=== PATIENT | female | born 1980 | race Caucasian/White ===

== ENCOUNTER → 2016-05-23 | Outpatient (CLI) | payer OTHER ==
[~2016-05-23] MED LIST: ALPR-411 PO; MULT-506 PO; ONDA4TAB46 PO
== END | disposition home or self-care (01) ==
LOC: C.LAB1850 16:49
PROVIDERS: ATTEND Obstetrics & Gynecology
DX: Z15.01 Genetic susceptibility to malignant neoplasm of breast (principal)

== ENCOUNTER → 2016-08-14 | Outpatient (CLI) | payer OTHER | END | disposition home or self-care (01) | LOC: C.PAPS 11:26 | PROVIDERS: ATTEND Obstetrics & Gynecology | DX: Z01.419 Encounter for gynecological examination (general) (routine) without abnormal findings (principal) ==

== ENCOUNTER → 2016-10-23 | Outpatient (CLI) | payer OTHER ==
[~2016-10-23] MED LIST changes: -ONDA4TAB46 PO
--- NOTE | 2016-10-23 13:06 | MAMMOGRAPHY REPORT ---
ULTRASOUND OF BOTH BREASTS: 10/23/2016 CLINICAL HISTORY: 36-year-old BRCA positive female who underwent bilateral prophylactic mastectomies and saline implant reconstruction in [facility] and [place] presents with asymmetry of her implants. Sh e feels as though the right implant "has dropped" and there is a tightness or pressure along the supe rior aspect. COMPARISON: Prior mammograms, ultrasounds and breast MRI dating from 199911/07/2013. FINDINGS: On visual inspection, the right reconstructed breast lies inferior with regard to the left and there is inferior breast fullness. There is asymmetry of the nipple/areolas, with the left down flores pointing. There is also less inferior tissue of the left reconstructed breast compared to the r ight. Targeted ultrasound was performed throughout the right breast to assess for any suspicious mass or fl uid collection. The implant is intact, without evidence of rupture. There is no evidence of a silvia- implant fluid collection or suspicious mass. IMPRESSION: ACR BI-RADS CATEGORY 1: NEGATIVE There is no sonographic evidence of malignancy, silvia-implant fluid collection or suspicious mass to e xplain the asymmetry of the patient's breast implants. Consultation with a plastic surgeon is recomm ended. (The patient reports she already has an upcoming appointment with Dr. Michael.) Deja Morales M.D. ay/:10/23/2016 11:15:10 Nurse Obgyn: Dr. Deja Morales, [facility] letter sent: Normal 1/2 BI-RADS Code: ACR BI-RADS Category 1: Negative
== END | disposition home or self-care (01) ==
LOC: C.MAMM 10:34
PROVIDERS: ATTEND Obstetrics & Gynecology
DX: N64.4 Mastodynia (principal); Z98.82 Breast implant status

== ENCOUNTER → 2017-04-02 | Outpatient (CLI) | payer OTHER | END | disposition home or self-care (01) | LOC: C.LAB1850 09:56 | PROVIDERS: ATTEND Obstetrics & Gynecology | DX: Z15.01 Genetic susceptibility to malignant neoplasm of breast (principal) ==

== ENCOUNTER → 2017-06-13 | Outpatient (CLI) | payer OTHER | END | disposition home or self-care (01) | LOC: C.LABSPEC 09:33 | PROVIDERS: ATTEND Nurse Practitioner | DX: J02.9 Acute pharyngitis, unspecified (principal) ==

== ENCOUNTER → 2017-08-21 | Outpatient (CLI) | payer OTHER | END | disposition home or self-care (01) | LOC: C.LAB1850 17:17 | PROVIDERS: ATTEND Obstetrics & Gynecology | DX: Z15.01 Genetic susceptibility to malignant neoplasm of breast (principal) ==

== ENCOUNTER → 2017-08-29 | Outpatient (CLI) | payer OTHER ==
[2017-08-29 15:38] LABS: BASO % 0.4 %; BASO ABS # 0.02 K/uL (0-0.2); EOS % 2.8 %; EOS ABS # 0.14 K/uL (0-0.5); HEMATOCRIT 34.4 % (37-47); HEMOGLOBIN 11.1 g/dL (12.0-16.0); IG# 0.01 K/uL (0.00-0.02); LYMPH % 28.9 %; LYMPH ABS # 1.45 K/uL (1.2-3.4); MEAN CELL VOLUME 83.7 fL (80-100); MEAN CORPUSCULAR HGB CONC 32.3 g/dl (32-36); MONO % 8.2 %; MONO ABS # 0.41 K/uL (0.11-0.59); NEUT % 59.5 %; NEUT ABS # 2.99 K/uL (1.4-6.5); PLATELET COUNT 281 K/uL (130-400); RED CELL DISTRIBUTION WIDTH CV 13.3 % (11.5-14.5); RED CELL DISTRIBUTION WIDTH SD 40.1 fL (36.4-46.3); WHITE BLOOD COUNT 5.02 K/uL (4.8-10.8)
[2017-08-29 15:46] LABS: PTT PATIENT 25.9 SECONDS (21.0-31.0)
[2017-08-29 16:03] LABS: BLOOD UREA NITROGEN 14 mg/dl (7-18); CALCIUM 8.9 mg/dl (8.5-10.1); CARBON DIOXIDE 27 mmol/L (21-32); CREATININE 0.68 mg/dl (0.60-1.20); GLUCOSE 82 mg/dl (70-99); POTASSIUM 3.8 mmol/L (3.5-5.1); SODIUM 137 mmol/L (136-145)
== END | disposition home or self-care (01) ==
LOC: C.LAB1850 14:08
PROVIDERS: ATTEND Physician Assistant
DX: Z01.818 Encounter for other preprocedural examination (principal); Z42.1 Encounter for breast reconstruction following mastectomy

== ENCOUNTER → 2017-11-13 | Outpatient (CLI) | payer OTHER | END | disposition home or self-care (01) | LOC: C.LAB1850 07:46 | PROVIDERS: ATTEND Obstetrics & Gynecology | DX: R63.5 Abnormal weight gain (principal) ==

== ENCOUNTER 2018-07-18 09:08 | Observation (INO) ==
--- NOTE | 2018-07-03 11:13 | Anesthesiology Consultation ---
Date of Service July 03, 2018 Assessment & Plan (1) Encounter for pre-operative examination: Chart Review Chart Review: Acceptable Risk for Surgery and Patient seen in Pre Admission Testing Consults Requested none Teaching & Discussion Pre-Anesthesia Teaching/Discussion Notes: Instructed NPO after midnight before surgery, except medications with 15 cc of water. Medication instructions provided according to the PAT guidelines. History Surgery Operation Date: 07/18/18 11:05 Proposed Procedures p Robotic Total Laparoscopic Hysterectomy - Leonela Blandon MD, FACOG Height/Weight Height: 5 ft 1 in Weight: 60.3 kg Allergies Allergy/AdvReac Type Severity Reaction Status Date / Time Penicillins Allergy Unknown UNKNOWN Verified 06/26/18 08:25 -FROM CHILDHOOD ALLERGY, RASH? Medications Home Medications Medication Instructions Recorded Confirmed Last Taken alprazolam 0.25 mg PO Q8H PRN 03/27/18 06/26/18 Unknown cholecalciferol (vitamin D3) 2,000 units PO DAILY 03/27/18 06/26/18 Unknown [Vitamin D3] levothyroxine 75 mcg PO QAM 03/27/18 06/26/18 06/26/18 multivitamin 1 tab PO DAILY 03/27/18 06/26/18 Unknown venlafaxine 75 mg PO QAM 03/27/18 06/26/18 06/26/18 Iron Infusion 1 dose UD 06/26/18 06/26/18 Unknown Vitamin D Injection 1 dose UD 06/26/18 06/26/18 Unknown Past Medical History Medical History Anxiety Gene mutation "BRAC 1 GENE" Heavy menstrual period REASON FOR UPCOMING SURGERY Hypothyroidism Low vitamin D level Past Surgical History Surgical History History of arthroscopy of left knee History of back surgery CYST REMOVAL History of bilateral mastectomy History of breast augmentation IMPLANTS FOLLOWING MASTECTOMY History of tubal ligation Bilateral distal Salpingectomy 09/01/15 - Snyder #2, ETT #7 HiLo with Grade 1 View Past Anesthesia History No Hx of Anesthesia Complications and No Family Hx of Anesthesia Complications History of PONV Yes Motion Sickness Screening History of Motion Sickness: No Social History Smoking Status: Never smoker Do You Dip or Chew Tobacco: No Hx Alcohol Use: Yes Alcohol type: wine alcohol intake frequency: holidays/special occasions only Hx Substance Use: No substance use type: does not use Exercise / Class Metabolic Activity 1 > 8 Run/Swim/Ski/Tennis (Runs 3-5 per day (5 days per week). Able to climb FOS. Denies CP or SOB. ) Review of Systems Patient denies chest pain, shortness of breath, dyspnea on exertion, joint pain, reflux, cough, wheezing, palpitations. Physical Exam Vital Signs BP: 115/80 P: 66 R: 14 T: 97.9 SPO2: 99% on RA ENMT Thyromental Distance: > or= 3.5 Finger Breadths (4) Mallampati Class: I Neck normal visual inspection and trachea midline; neck extension not limited Respiratory normal respiratory effort Auscultation: lungs clear to auscultation bilaterally Cardiovascular Rate/Rhythm: regular rate and regular rhythm Heart Sounds: no murmur Neurologic moves all extremities Psychiatric Orientation: alert and oriented x 3 Testing Laboratory Results 07/03/18 11:30 Blood Type A Negative 07/03/18 11:30 Antibody Screen NEGATIVE 07/03/18 11:30
--- NOTE | 2018-07-03 11:15 | PAT Medication Instructions ---
Medication Instructions Date of Service July 03, 2018 Home Medications alprazolam 0.25 mg PO Q8H PRN cholecalciferol (vitamin D3) 2,000 units PO DAILY levothyroxine 75 mcg PO QAM multivitamin 1 tab PO DAILY venlafaxine 75 mg PO QAM Iron Infusion 1 dose Weekly Vitamin B12 Injection 1 dose Weekly Continue as directed Iron Infusion 1 dose Weekly Vitamin B12 Injection 1 dose Weekly DO NOT take the morning of surgery multivitamin 1 tab PO DAILY cholecalciferol (vitamin D3) 2,000 units PO DAILY Take morning of surgery With a small sip of water, OTHERWISE NOTHING TO EAT OR DRINK AFTER MIDNIGHT: venlafaxine 75 mg PO QAM levothyroxine 75 mcg PO QAM alprazolam 0.25 mg PO Q8H PRN Take evening before surgery alprazolam 0.25 mg PO Q8H PRN Other Notes If you have any questions please call us at [phone] or [phone] or [phone] or [phone]
[2018-07-03 12:17] LABS: Basophils # (auto) 0.01 K/uL (0-0.2); Basophils % (auto) 0.2 %; Eosinophils # (auto) 0.11 K/uL (0-0.5); Hematocrit (blood only) 38.3 % (37-47); Hemoglobin 12.9 g/dL (12.0-16.0); Lymphocytes # (auto) 1.67 K/uL (1.2-3.4); Lymphocytes % (auto) 31.1 %; Mean Corpuscular Hgb Conc 33.7 g/dL (32-36); Mean Corpuscular Volume 88.7 fL (80-100); Mean Platelet Volume 9.7 fL (7.4-10.4); Monocytes # (auto) 0.33 K/uL (0.11-0.59); Monocytes % (auto) 6.1 %; Neutrophils # (auto) 3.25 K/uL (1.4-6.5); Neutrophils % (auto) 60.6 %; Platelet Count 238 K/uL (130-400); RDW Coefficient of Variation 14.1 % (11.5-14.5); RDW Standard Deviation 46.1 fL (36.4-46.3); Red Blood Count 4.32 M/uL (4.2-5.4); White Blood Count 5.37 K/uL (4.8-10.8)
[~2018-07-18 09:08] MED LIST changes: -ALPR-411 PO; +CEFAZOLIN 2000MG 2,000 MG/15 ML SYR IV SCH; +LACTATED RINGER'S 1,000 ML IV SCH; +LR 15ML/HR IV SCH; -MULT-506 PO; +PHENAZOPYRIDINE HCL 200 MG TAB PO SCH; +SCOPOLAMINE 1.5 MG TDSY TD SCH
--- NOTE | 2018-07-18 10:06 | History & Physical Bridge Note ---
Date of Service July 18, 2018 History & Physical Bridge Note I have examined the patient, reviewed the History & Physical and in the interval since the performance of the History & Physical I have noted the following changes of clinical significance: no changes noted
[2018-07-18] MEDS ORDERED: MEPERIDINE HCL 25 MG/ML CARP IV PRN (10:13)
[2018-07-18] MEDS ORDERED: ePHEDrine sulfate 50 MG/ML AMP IV PRN (10:13)
[2018-07-18] MEDS ORDERED: LABETALOL HCL IV 5 MG/ML 20ML IV PRN (10:13)
[2018-07-18] MEDS ORDERED: HYDROmorphone INJ 1 MG/ML SYRINGE IV PRN (10:13)
[2018-07-18] MEDS ORDERED: ONDANSETRON INJ 2 MG/ML 2 ML VIAL IV PRN ×2 (10:13→12:32)
[2018-07-18] MEDS ORDERED: PHENYLEPHRINE 100MCG/ML 5ML SYR IV PRN (10:13)
[2018-07-18] MEDS ORDERED: ATROPINE SULFATE 0.1 MG/ML 10ML SYR IV PRN (10:13)
[2018-07-18] MEDS ORDERED: BUPIVACAINE 0.5 % 5 MG/1 ML MPF 30ML VIAL ONE (10:15)
[2018-07-18] MEDS ORDERED: DEXAMETHASONE SOD INJ 4 MG/ML VIAL ONE ×2 (10:19→10:44)
[2018-07-18] MEDS ORDERED: PROPOFOL IV EMULSION 10 MG/ML 20 ML VIAL IV ONE (10:19)
[2018-07-18] MEDS ORDERED: NEOSTIGMINE METHYLSULFATE 5 MG/5 ML SYR ONE (10:19)
[2018-07-18] MEDS ORDERED: ePHEDrine sulfate 50 MG/ML AMP ONE (10:19)
[2018-07-18] MEDS ORDERED: ONDANSETRON INJ 2 MG/ML 2 ML VIAL ONE ×2 (10:19→10:44)
[2018-07-18] MEDS ORDERED: PHENYLEPHRINE HCL 10 MG/ML VIAL ONE (10:19)
[2018-07-18] MEDS ORDERED: SUCCINYLCHOLINE CHLORIDE 20 MG/ML 10 ML VIAL ONE (10:19)
[2018-07-18] MEDS ORDERED: LIDOCAINE HCL 2% 2 ML VIAL/AMP(20MG/ML) INFIL ONE (10:19)
[2018-07-18] MEDS ORDERED: GLYCOPYRROLATE 0.2 MG/ML VIAL ONE ×2 (10:19→12:10)
[2018-07-18] MEDS ORDERED: MIDAZOLAM HCL 1 MG/ML 2ML VIAL ONE (10:20)
[2018-07-18] MEDS ORDERED: fentaNYL citrate 100 MCG/2 ML VIAL ONE (10:20)
[2018-07-18] MEDS ORDERED: HYDROmorphone INJ 2 MG/ML SYR/VIAL ONE (11:07)
[2018-07-18] MEDS ORDERED: ACETAMINOPHEN 1000 MG/100 ML IV IV ONE (11:52)
[2018-07-18] MEDS ORDERED: KETOROLAC 30 MG/ML VIAL ONE (12:10)
--- NOTE | 2018-07-18 12:15 | Post Operative Brief Note ---
Immediate Post Op Note v1 Date of Surgery July 18, 2018 Pre & Post Diagnosis Operation Date: 07/18/18 10:25 Pre-Op Diagnosis: Menorrhagia, BRCA 1 mutation, Anemia Post-Op Diagnosis: Menorrhagia, BRCA 1 mutation, Anemia Procedure Operation Date: 07/18/18 10:25 Actual Procedures p Robotic Assisted Total Laparoscopic Hysterectomy, Bilateral oophorectomy, Cystoscopy - Leonela Blandon MD, FACOG Surgeon Leonela Blandon MD, FACOG Junior Manufacturing Engineer Samantha for cystoscopy Estimated Blood Loss 5 Findings See Below normal uterus and ovaries bilaterally. normal liver edge. cytoscopy findings with normal bladder filling and normal ureteral jets Fluids 1600 Specimens uterus, cervix, bilateral ovaries Drains Lopez Catheter (18 fr ) Complications none Disposition Accompanied Patient To Recovery: No Disposition: Recovery Room
[2018-07-18] MEDS ORDERED: OXYCODONE/ACETAMINOPHEN 5mg/325mg TAB PO PRN ×2 (12:32)
[2018-07-18] MEDS ORDERED: KETOROLAC 30 MG/ML VIAL IV PRN (12:32)
[2018-07-18] MEDS ORDERED: ACETAMINOPHEN 325 MG TAB PO PRN (12:32)
[2018-07-18] MEDS ORDERED: DiphenhydrAMINE HCL 50 MG/ML VIAL ONE (12:45)
[2018-07-18] MEDS ORDERED: ROCURONIUM BROMIDE 10 MG/ML 5 ML VIAL ONE (12:47)
[2018-07-18] MEDS: fentaNYL citrate 100 MCG/2 ML VIAL IV PRN ×2 (12:50→12:55)
[2018-07-18] MEDS ORDERED: DiphenhydrAMINE HCL 50 MG/ML VIAL IV STA (13:23)
--- NOTE | 2018-07-18 13:23 | Anesthesiology Progress Note ---
Date of Service July 18, 2018 Anesthesia Post Procedure Vital Signs Vital Signs: Temp Pulse Pulse Resp BP Pulse Ox 07/18/18 13:10 57 L 13 110/65 93 07/18/18 13:00 65 16 106/62 92 07/18/18 12:50 55 L 15 112/62 100 07/18/18 12:40 60 16 114/72 100 07/18/18 12:33 36.5 C 61 14 113/73 100 07/18/18 09:28 36.7 C 59 L 18 130/80 98 Pain Intensity Abdomen: Pain Intensity: 2 Notes Mental Status: alert / awake / arousable Patient Amnestic to Procedure: Yes Nausea / Vomiting: adequately controlled Pain: adequately controlled Airway Patency, RR, SpO2: stable & adequate BP & HR: stable & adequate Hydration State: stable & adequate Anesthetic Complications: no major complications apparent and Pt Satisfied with anesthetic care Notes: The patient did well during the procedure. After the procedure was over and the patient was uncovered, a red rash was noted under the patient's breasts and possibly on her arms. She was given diphenhydramine 25 mg IV which appeared to treat the rash. She was extubated without incident. In PACU, she is awake and stable. Her lungs are clear and she feels well except for some mild itching. The rash appears to have disappeared. She will be given another dose of diphenhydramine but is otherwise stable and okay to go to the floor.
--- NOTE | 2018-07-18 14:17 | Operative Report ---
DATE OF OPERATION: 07/18/2018 PREOPERATIVE DIAGNOSES: 1. BRCA1 positive. 2. Menorrhagia. 3. Iron-deficiency anemia. POSTOPERATIVE DIAGNOSES: 1. BRCA1 positive. 2. Menorrhagia. 3. Iron-deficiency anemia. PROCEDURES: 1. Total laparoscopic hysterectomy. 2. Bilateral oophorectomy. 3. Cystoscopy. 4. Robotic assistance. SURGEON: Leonela Blandon MD GEOTECHNICAL ENGINEER: Jose Singh MD INTRAVENOUS FLUIDS: 1600 mL. ESTIMATED BLOOD LOSS: 5 mL. ANESTHESIA: General. INDICATIONS: A 38-year-old 3, para 3 with a history of heavy menses, anemia requiring IV iron and a BRCA1 mutation for treatment planning. The patient has previously had bilateral salpingectomies as she has been done childbearing. She had been counseled by her auto servicer to consider hysterectomy due to her heavy menses, and in addition, we discussed risk reducing oophorectomy due to her age and she was agreeable. FINDINGS: Mobile uterus, normal ovaries bilaterally, normal liver edge, normal appendix seen. Cystoscopy findings with normal bladder filling and normal ureteral jets bilaterally. DESCRIPTION OF PROCEDURE: The patient was taken to the operating room and identified. After adequate general anesthesia was obtained, she was placed in dorsal lithotomy position and prepped and draped in the usual sterile fashion. Attention was turned to the patient's vagina where a weighted speculum and anterior retractor placed to visualize the cervix which was grasped in its anterior lip with an Allis clamp. A single interrupted suture of 0 Vicryl was placed at 3 o'clock position and the cervix was sequentially dilated using Hegar dilators and sounded to 9 cm. The VCare uterine manipulator device was gently placed through the cervical os into the uterine cavity and a balloon was inflated. The cup was tied down to the suture material and stabilizing cup was placed. The vaginal instruments were removed and a Lopez catheter was placed under sterile conditions. Attention was then turned to the patient's abdomen where a supraumbilical skin incision made with a scalpel. The Veress needle was placed intraperitoneally with an opening pressure of 4 mmHg. A CO2 pneumoperitoneum was created. The 12 mm optical trocar was directly placed into the peritoneal cavity. The patient was placed in steep Trendelenburg. The da Karla trocar sites were created left and right of the midline by first creating skin incisions and then placing under direct visualization da Karla trocars. The bowel was teased away from the planned operative field. The ureters were seen coursing well away from the planned operative sites. The laparoscope and camera removed. The da Karla robot was brought to the patient's bedside. The appropriate instrument arms were connected to the appropriate trocars. The camera was introduced. Under direct visualization, a monopolar titus was brought through instrument arm #1 and a fenestrated bipolar through instrument arm #2. The surgeon then went to the console. With manipulation, the right infundibulopelvic ligament was identified. It was coagulated with multiple grasps and then transected using the monopolar titus. The round ligament was also elevated, coagulated, and transected and the remaining broad ligament attachments were taken down in between these 2 sites. The bladder flap was begun from the right side towards the midline, pushing the bladder well away from the planned operative sites. The uterine artery pedicle was coagulated. Attention was turned to the left infundibulopelvic ligament, round ligament, broad ligament complex. It was also coagulated and transected in a similar fashion, and anterior and posterior leaves of the broad ligament were opened up into create a bladder flap anteriorly. The uterine artery pedicle was skeletonized and then coagulated and transected. The cardinal ligaments were also coagulated and transected. The bladder was pushed well away from the planned operative sites at the colpotomy anteriorly on the left. Attention was returned to the right side where the uterine artery pedicle was recoagulated and transected and the cardinal ligament attachments were coagulated and transected. The colpotomy site was more thoroughly cleared away from the right side towards the midline. The uterus was lifted and the colpotomy was begun at the posterior vaginal cuff. It was carried around circumferentially and the specimen was completely transected and then removed vaginally. A sponge was placed in the vagina to allow for maintenance of the pneumoperitoneum. The 2-0 V-Loc 90 suture was introduced vaginally and the #1 instrument arm was replaced with a large needle otr van cdl truck driver. The cuff was then closed in a routine fashion using the suture material and back stitches were placed. The sponge was removed from the vagina. Pneumoperitoneum was maintained. The #1 instrument was removed and the instrument arm was undocked to allow for the needle otr van cdl truck driver to come in and the needle was removed from the abdomen. Suction card boxer was then brought in and the pelvis was irrigated and there were no active bleeding sites noted. The CO2 pneumoperitoneum was let down and there were still no active bleeding sites noted. All the operative sites were hemostatic. The CO2 gas was allowed to escape from the patient's abdomen after the camera was removed. A cystoscopy took place with the findings as noted above. A new Lopez catheter was placed under sterile conditions. The robot was then completely undocked from the patient and removed from the bedside and the trocars were removed after the CO2 gas was allowed to escape from the patient's abdomen. The patient was placed in flat positioning and the fascia was reapproximated at the supraumbilical site with an interrupted suture of 0 Vicryl. The incisions were injected with Marcaine, stitched in a subcuticular fashion with 4-0 Vicryl and dressed with Dermabond. The patient was returned to the supine position and awoken from anesthesia. She was transferred to the recovery room in stable condition. All sponge, lap, needle counts were correct x2. I attest to the content of the Intraoperative Record and any orders documented therein. Any exceptions are noted below. BRIAN
[2018-07-18] MEDS: IBUPROFEN 600 MG TAB PO PRN ×2 (14:19→19:32)
[2018-07-18] MEDS ORDERED: CHECK SCOPOLAMINE PATCH PLACEMENT SCH (16:00)
--- NOTE | 2018-07-19 17:56 | Discharge Summary ---
Date of Service July 18, 2018 Admission HPI Per Admitting Provider Admission diagnoses: Menorrhagia, BRCA 1 mutation, Iron deficiency anemia Discharge diagnoses: same Discharge Data Procedures Performed Operation Date: 07/18/18 10:25 Actual Procedures p Robotic Assisted Total Laparoscopic Hysterectomy, Bilateral oophorectomy, cystoscopy- Leonela Blandon MD, FACOG s Cystoscopy(Not Applicable) - Leonela Blandon MD, [facility] Hospital Course (1) BRCA1 gene mutation positive: (2) Menorrhagia: (3) Iron deficiency anemia due to chronic blood loss: The patient underwent the above stated procedures without incident. Her recovery was uneventful. She had a rash on her bilateral breast reconstruction scars after the surgery. This was unexpected and so she was given benadryl. She subsequently verified that this has happened before for instance when she wears a tight sports bra. The rash resolved. She was stable for discharge home on her pod#0. She was given appropriate discharge instructions and had a planned 2 week postoperative appointment. She was given a pain medicine prescription.
--- OUTSIDE RECORDS SUMMARY | 2018-08-04 13:37 | External Medical Summary | Continuity of Care Document ---
:1980 Author Name Tati Simon, Provider Address Unavailable Unavailable , Care Team Providers Name Role Phone Leonela Blandon M.D. Unavailable [email or web address] Fred Hughes III, M.D. 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 01) (Z15.01) Postoperative breast asymmetry (611.89) (N64.89) Status post bilateral breast implants (V43.82) (Z98.82) Well woman exam with routine gynecological exam (V72.31) (Z0 1.419) Easy bruisability (782.9) (R23.8) Postoperative fever (780.62) (R50.82) Surgical menopause (627.4) (E89.40) Allergies and Adverse Reactions Penicillins (Allergy) Sulfa Drugs (Allergy) Medications Cephalexin 500 MG Oral Capsule; TAKE 1 CAPSULE 3 times daily Aurora Blandon Start: 22-Jul-2018 Quantity: 21 Refills: 0 Triamcinolone Acetonide 0.1 % External O intment; APPLY SPARINGLY TO AFFECTED AREA(S) TWICE DAILY Aurora Blandon Start: 28-Jul-2018 Quantity: 1 30 GM Tube Refills: 0 Venofer 20 MG/ML Intravenous Solution; Infuse 200 mg once Th Aurora schwartz Start: 26-May-2018 Quantity: 10 Refills: 0 Levothyroxine Sodium 88 MCG Oral Tablet; 88 mcg daily on empty stomach - wait 30 minutes before food. Aurora Quintero Start: 18-Nov-2017 Quantity: 90 Refills: 3 Estradiol 0.05 MG/24HR Transdermal Patch Twice Weekly; apply one patch twice weekly as directed-transdermal patch Aurora Blandon Start: 9 Quantity: 8 Refills: 12 ALPRAZolam 0.25 MG Oral Tablet; TAKE ONE TABLET BY MOUTH THREE TIMES DAILY NEEDED Aurora Hughes III Start: 06-Nov-2016 Quantity: 30 Refills: 0 Venlafaxine HCl ER 75 MG Oral Capsule Ex tended Release 24 Hour; TAKE 1 CAPSULE ONCE DAILY WITH FOOD. Aurora Hughes III Start: 15-Apr-2018 Quantity: 30 Refills: 5 Sulfamethoxazole-Trimethoprim 800-160 MG Oral Tablet; TAKE ONE TABLET TWICE A DAY FOR 7 DAYS. Aurora Blandon Start: 25-Jul-2018 Quantity: 14 Refills: 0 Multi Vitamin Oral Tablet; TAKE 1 TABLET DAILY. Refills: 0 Procedures History of Mastectomy For Gynecomastia Bilateral Status: Completed History of knee arthroscopy Status: Comp leted History of tubal ligation Status: Comple gabriel History of Hysterectomy Robotic-Assisted Status: Completed Immunizations Influenza (Whole) On: 30-Dec-2014 12:51 Lot #: [id number], [employer] PA[employer]UR Family History Mother Family history of malignant neoplasm of breast (V16.3) (Z80. 3) Status: Active Family history of Ovarian cancer (183.0) (C56.9) Status: Act mony Family history of malignant neoplasm of ovary (V16.41) (Z80. 41) Status: Active Grandmother Family history of malignant neoplasm of breast (V16.3) (Z80. 3) Status: Active Family history of Ovarian cancer (183.0) (C56.9) Status: Act mony Family history of malignant neoplasm of ovary (V16.41) (Z80. 41) Status: Active great grandmother Family history of malignant neoplasm of breast (V16.3) (Z80. 3) Status: Active Family history of Ovarian cancer (183.0) (C56.9) Status: Act mony aunt Family history of malignant neoplasm of breast (V16.3) (Z80. 3) Status: Active Unknown Family Member Family history of malignant neoplasm of Status: Active Comments: Maternal Relatives breast (V16.3) (Z80.3) aunt Family history of malignant neoplasm of ovary (V16.41) (Z80. 41) Status: Active Social History - Smoking Status Former smoker Plan of Treatment Planned Encounters Appointment; Roshni Quintero M.D. Start: 22-Oct-2018 9:10 Requ est Planned Observations Planned Goals not documented Results Antithrombin Activity Laboratory: [facility] Comments: [facility]ella NUMBER: [id number] 04-Jul-2018 14:57 Anti-Thrombin III Activity Range: 80-12 0 % activity 118 {%_activity} Comments: THIS TEST WAS PERFORMED AT:[facility] [address] [id number] LEVINE MD, PHD Protein C Functional Laboratory: [facility] Comments: [facility] NUMBER: [id number] 04-Jul-2018 14:57 Protein C Range: 70-180 % Functional(Activity) 116 % Comments: Uni ts: % of normalTHIS TEST WAS PERFORMED AT:[facility] [place] [id number] LEVINE MD, PHD Protein S Functional Laboratory: [facility] Comments: [facility] NUMBER: [id number] 04-Jul-2018 14:57 Protein S Range: 60-140 % Functional(Activity) 114 % Comments: THI S TEST WAS PERFORMED AT:[facility] [place], [place] [id number] Altagracia LEVINE MD, PHD , Urine - Point Of Laboratory: [facility] Laboratory Care [address] [facility] [address] tel: 18-Jul-2018 10:04 , Urine (Point of Range: NEG Care) NEG BLOOD BANK HOLD TUBE Laboratory: [facility] Laboratory [address] [facility] [address] tel: 18-Jul-2018 10:05 BLOOD BANK HOLD TUBE Run: 07/18/18 1023 [facility] Pathology Report Name: GIANNA HERNANDEZ Age/Sex: 38/F Location: ASUAcct: [id number] Unit: [id number] Status: [place] [facility] Room/Bed:Re07/18/18 Disch: Att Dr: Leonela Blandon MD (G ------- Spec: [id number] Collected: 07/18/18Received: 07/18/[address] [facility] [address]: Leonela Blandon MD (FLORAL DESIGNER/OB)Copy To: Shine Hughes MDOrd Prods: (NO ORDERED PRODUCTS)Ord Tests: (NO REPORTABLE TESTS) Test Result Flag Reference Site ---------<No reportable results> Tests: Date Time Order Change Action User07/17/18 1440 Blood Bank Hold 1 NEW [id number] ----- END OF REPORT CBC With DIFF Laboratory: [facility] Laboratory [address] [place] [address] tel: 22-Jul-2018 11:42 WBC 4.82 K/uL Range: 4.8-10.8 K/u L RBC 4.44 {M/uL} Range: 4.2-5.4 M/uL HEMOGLOBIN 13.4 g/dL Range: 12.0-16.0 g /dL HEMATOCRIT 39.3 % Range: 37-47 % MCV 88.5 fL Range: 80-100 fL MCH 30.2 pg Range: 25-34 pg MEAN CORPUSCULAR HGB CONC Range: 32-36 g/dL 34.1 g/dL RED CELL DISTRIBUTION WIDTH Range: 36.4 -46.3 fL SD 44.6 fL RED CELL DISTRIBUTION WIDTH Range: 11.5 -14.5 % CV 13.7 % PLATELET COUNT 214 K/uL Range: 130-400 K/uL MEAN PLATELET VOLUME 10.1 fL Range: 7.4 -10.4 fL NEUT % 63.3 % Range: % LYMPH % 22.2 % Range: % MONO % 5.8 % Range: % EOS % 8.5 % Range: % BASO % 0.2 % Range: % IG% 0.0 % Range: % Neutrophils (Auto) 3.05 K/uL Range: 1. 4-6.5 K/uL LYMPH ABS # 1.07 K/uL (below Range: 1.2 -3.4 K/uL low threshold) MONO ABS # 0.28 K/uL Range: 0.11-0.59 K /uL EOS ABS # 0.41 K/uL Range: 0-0.5 K/uL BASO ABS # 0.01 K/uL Range: 0-0.2 K/uL IG# 0.00 K/uL Range: 0.00-0.02 K/ uL Comp Metabolic Panel Laboratory: [facility] Laboratory [address] [facility] [address] tel: 22-Jul-2018 11:42 SODIUM 139 mmol/L Range: 136-145 mmol /L POTASSIUM 4.3 mmol/L Range: 3.5-5.1 mmo l/L CHLORIDE 108 mmol/L (above Range: 98-10 7 mmol/L high threshold) CARBON DIOXIDE 25 mmol/L Range: 21-32 m mol/L ANION GAP 6.0 Range: 3-11 BLOOD UREA NITROGEN 10 mg/dl Range: 7-1 8 mg/dl CREATININE 0.61 mg/dl Range: 0.6-1.2 mg /dl Estimated GFR ( Comments: Units: ml/min per Vietnamese) 135.2 1.73 meters squaredT he estimated GFR (CKD-E PI equation) has not be en validatedfor innorton hospitale nt settings and may not be an accurate reflectiono f renal function in critical ly ill patients or those withrapidly changing renal function (e.g. MARRY). Estimated GFR (Non- Comments: Uni ts: ml/min per Vietnamese) 116.6 1.73 meters squaredT he estimated GFR (CKD-E PI equation) has not be en validatedfor inpatie nt settings and may not be an accurate reflectiono f renal function in critical ly ill patients or those withrapidly changing renal function (e.g. MARRY). BUN/CREATININE RATIO 16.0 Range: 10-20 GLUCOSE 89 mg/dl Range: 70-99 mg/dl CALCIUM 9.7 mg/dl Range: 8.5-10.1 mg/ dl Bilirubin, Total 0.2 mg/dl Range: 0.2-1 mg/dl AST/SGOT 17 U/L Range: 15-37 U/L ALT/SGPT 19 U/L Range: 12-78 U/L TOTAL PROTEIN 6.9 {gm/dl} Range: 6.4-8. 2 gm/dl ALBUMIN 3.8 {gm/dl} Range: 3.4-5.0 gm/d l GLOBULIN 3.1 {gm/dl} Range: 2.5-4.0 gm/ dl ALB/GLOB RATIO 1.2 Range: 0.9-2 ALKALINE PHOSPHATASE 54 U/L Range: 45-1 17 U/L Chemistry Specimen Hemolysis Laboratory: [facility] Laboratory [address] [facility]. [facility] [address] tel: 22-Jul-2018 11:42 Chemistry Specimen Hemolysis Comments: S light hemolysis is detected which ma y affect Potassium,Magnesium, AST and CK. If clinically indicated, theseshou ld be recollected. Urine rflx Microscopic Laboratory: [facility] Laboratory Comments : Josee N [address] [facility] [address] tel: 22-Jul-2018 0:00 Urine Color Yellow Urine Appearance Clear Range: Clear Urine Specific Hale 1.011 Range: 1.0 00-1.030 Urine Ph 5.5 Range: 4.5-7.5 Urine Protein(Dipstick) Range: Negative Negative Urine Glucose(Dipstick) Range: Negative Negative Urine Ketones Negative Range: Negative Urine Bilirubin Negative Range: Negativ e URINE BLOOD HGB Negative Range: Negativ e Urobilinogen Negative Range: Negative Nitrite Urine Negative Range: Negative Urine Leukocyte Esterase Range: Negativ e Negative Urine Culture 22-Jul-2018 0:00 URINE CULTURE CATH ORDERED PROCEDURE : Urine Culture; Speciment : Urine,Clean Catch Source of Specimen: Clean Catch Urine Culture : Enterobacter cloacae [place] Count\S\[place] Count 20,000 S\S\Sens Sensitivities to Follow S = SENSITIVE I = INTERMEDIATE R = RESISTANT ORGANISM : Negative/Urine Combo 61 Amikacin : S <=16Cefepime : S <=4Cefotaxime : S <=2Ceftriaxone : S <=1Ciprofloxacin : S <=1Ertapenem : S <=1Gentamicin : S <=4Imipenem : S <=1Levofloxacin : S <=2Nitrofurantoin : R >64Tobramycin : S <=4Trimethoprim/Sulfamethoxaz ole : S <=2/38Piperacillin/Tazobactam : S <=16 Vital Signs 28-Jul-2018 11:46 Systolic 118 mm[Hg] Diastolic 72 mm[Hg] Height 61 in BMI Calculated 25.13 kg/m2 Weight 133 lb BSA Calculated 1.59 m2 Temperature 98.2 f 22-Jul-2018 11:06 Systolic 118 mm[Hg] Diastolic 70 mm[Hg] Height 61 in BMI Calculated 25.13 kg/m2 Weight 133 lb BSA Calculated 1.59 m2 Temperature 97.4 f Comments: Method: Or al Encounters Appointment; Leonela Blandon M.D. 28-Jul-2018 11:45 Encounter Diagnosis: Problem not documented Appointment; Leonela Blandon M.D. 22-Jul-2018 11:15 Encounter Diagnosis: Problem not documented Appointment; Leonela Blandon M.D. 18-Jul-2018 10:25 Encounter Diagnosis: Problem not documented Appointment; Leonela Blandon M.D. 03-Jul-2018 10:00 Encounter Diagnosis: Problem not documented Appointment; Shine Hughes III, M.D. 29-May-2018 11:30 Encounter Diagnosis: Problem not documented Appointment; Nurse Jhonathan 08-May-2018 14:00 Encounter Diagnosis: Problem not documented Appointment; Roshni Quintero M.D. 02-May-2018 9:00 Encounter Diagnosis: Problem not documented Appointment; Prabha Leyva M.D. 11-Apr-2018 9:00 Encounter Diagnosis: Problem not documented Appointment; Echo/Stress, Echo/Stress 03-Apr-2018 9:30 Encounter Diagnosis: Problem not documented Appointment; Shine Hughes III, M.D. 28-Mar-2018 10:50 Encounter Diagnosis: Problem not documented Appointment; Jose Singh M.D. 18-Mar-2018 14:00 Encounter Diagnosis: Problem not documented Appointment; Shine Hughes III, M.D. 18-Nov-2017 10:10 Encounter Diagnosis: Problem not documented Appointment; Abi Michael M.D. 14-Oct-2017 10:00 Encounter Diagnosis: Problem not documented Appointment; Steph Nick PA-C 08-Oct-2017 15:15 Encounter Diagnosis: Problem not documented Appointment; Steph Nick PA-C 03-Oct-2017 9:45 Encounter Diagnosis: Problem not documented Appointment; Steph Nick PA-C 30-Sep-2017 9:45 Encounter Diagnosis: Problem not documented Appointment; Steph Nick PA-C 26-Sep-2017 9:00 Encounter Diagnosis: Problem not documented Appointment; Abi Michael M.D. 24-Sep-2017 8:30 Encounter Diagnosis: Problem not documented Appointment; Steph Nick PA-C 29-Aug-2017 13:00 Encounter Diagnosis: Problem not documented Appointment; Prabha Leyva M.D. 19-Aug-2017 8:20 Encounter Diagnosis: Problem not documented Appointment; Abi Michael M.D. 05-Jul-2017 15:00 Encounter Diagnosis: Problem not documented Appointment; Sonal Davis CRNP 13-Jun-2017 9:45 Encounter Diagnosis: Problem not documented Appointment; Shine Hughes III, M.D. 31-May-2017 15:00 Encounter Diagnosis: Problem not documented Appointment; [place] [address] 31-May-2017 14:45 Encounter Diagnosis: Problem not documented Appointment; Prabha Leyva M.D. 14-Aug-2016 8:20 Encounter Diagnosis: Problem not documented Appointment; Roshni Quintero M.D. 22-Oct-2018 9:10 Encounter Diagnosis: Problem not documented
== END 2018-07-18 20:20 | disposition home or self-care (01) ==
LOC: ASU 09:08 → 4N 09:08